=== PATIENT | female | born 1990 | race Hispanic/Latino ===

== ENCOUNTER → 2018-09-27 09:32 | Outpatient (CLI) | payer OTHER, MEDICAID, SELFPAY ==
[2018-09-27 10:09] LABS: Add Manual Diff / Slide Review NO; Basophils Absolute Auto 0 /uL (0-100); Basophils Percent Auto 0.3 % (0-2); Eosinophils Absolute Auto 100 /uL (0-450); Eosinophils Percent Auto 1.3 % (2-4); Hematocrit 38.3 % (36-46); Hemoglobin 12.6 g/dL (12.0-16.0); Lymphocytes Absolute Auto 1800 /uL (1100-4500); Lymphocytes Percent Auto 17.4 % (25-40); Mean Corpuscular Hemoglobin 30.4 PG (26-34); Monocytes Absolute Auto 700 /uL (0-900); Monocytes Percent Auto 6.5 % (3-14); Neutrophils Absolute Auto 7700 /uL (1500-7000); Neutrophils Percent Auto 74.5 % (50-75); Platelet Count 285 X10^3/uL (150-400); Red Blood Cell Count 4.17 X10^6/uL (4.0-5.2); Red Cell Distribution Width 14.2 % (11.6-14.8); White Blood Cell Count 10.3 X10^3/uL (4.5-11.0)
[2018-09-27 10:12] LABS: Appearance Urine UA CLEAR; Bilirubin Urine UA NEGATIVE (NEGATIVE); Color Urine UA YELLOW; Glucose Urine UA NEGATIVE (Negative); Ketones Urine UA NEGATIVE (NEGATIVE); Leukocyte Esterase Urine UA TRACE (NEGATIVE); Nitrite Urine UA NEGATIVE (Negative); Occult Blood Urine UA 1+ (Negative); Protein Urine UA NEGATIVE (Negative); Urobilinogen Urine UA 0.2 E.U./dL (0.2); pH Urine UA 7.5 (4.5-8.0)
[2018-09-27 10:28] LABS: Glucose 78 mg/dL (70-100)
[2018-09-27 10:32] LABS: Hemoglobin A1C% w Est Avg Glu 5.3 % (4.0-6.0)
[2018-09-27 10:34] LABS: RBC Urine 0-1/HPF (0-5/HPF); Squamous Epithelial Cell Urine 1-5 /HPF; WBC Urine 0-1/HPF (0-5/HPF)
[2018-09-27 10:35] LABS: Amorphous Sediment Urine 1+; Bacteria Urine Few (2-10)
[2018-09-27 10:56] LABS: Hepatitis B Surface Antigen NEGATIVE s/c (NEGATIVE); Rubella Antibody IgG 36.8 IU/mL (>15)
[2018-09-27 11:15] LABS: HIV 1 and 2 Antibody NEGATIVE (NEGATIVE); Hep C Virus Ab w/Reflex Quant NEGATIVE s/c (NEGATIVE)
[2018-09-29 13:55] LABS: Varicella IgG Antibody < 135.00 Index (< 135.00)
[2018-09-29 14:06] LABS: RPR Screen Nonreactive (Nonreactive)
== END ==
PROVIDERS: PCP Family Medicine
DX: Z34.81 Encounter for supervision of other normal pregnancy, first trimester (principal)
CPT/HCPCS: 36415; 80055; 81003; 81015; 82947; 83036; 86703; 86787; 86803; 86850; 86900; 86901; 87086

== ENCOUNTER → 2018-11-05 17:01 | Outpatient (CLI) | payer OTHER, MEDICAID, SELFPAY ==
[2018-11-09 09:31] LABS: Sequential Screen 1st Trimeste FINAL RESULT PENDING
== END ==
PROVIDERS: PCP Family Medicine
DX: Z34.81 Encounter for supervision of other normal pregnancy, first trimester (principal)
CPT/HCPCS: 36415; 84163; 84702

== ENCOUNTER 2018-11-20 14:40 | Outpatient (CLI) | payer OTHER, MEDICAID, SELFPAY ==
[2018-11-20 14:42] VITALS: BP 115/70; PULSE 90; RESP 18; TEMP 36.6; O2SAT 100
[2018-11-20 15:42] LABS: Bacteria Urine Few (2-10); Culture Indicated Urine Specimen Cultured; RBC Urine 0-1/HPF (0-5/HPF); Squamous Epithelial Cell Urine 1-5 /HPF (0-5/HPF); WBC Urine 5-10/HPF (0-5/HPF)
--- NOTE | 2018-11-20 16:13 | ED_ITS ---
HPI - Abdominal Pain <Suzanne Nieto PA-C - Last Filed: 11/20/18 21:33> General Chief Complaint: Abdominal Pain Stated Complaint: STOMACH PAIN BACK PAIN HEADACHE 16 WKS Time Seen by Provider: 11/20/18 15:39 Source: patient Mode of arrival: ambulatory Limitations: no limitations History of Present Illness HPI narrative: This healthy female who is 16 weeks comes in due to concern for urinary infection and, states unable to get in with her PCP. She complains of 3 day history of suprapubic discomfort along with urinary frequency and urgency. She denies dusty dysuria, denies hematuria. She states that she has some pain across her low back with the , maybe a little bit worse in the last few days, denies any flank pain. she states her nausea and vomiting are as usual with the , denies any worsening symptoms, denies any fever, chills, sweats. She notes that she has a mild frontal headache today which is not unusual for her, has not taken any Tylenol for this as it is quite mild. She denies any other complaints on systems review. Related Data Home Medications Medication Instructions Recorded Confirmed norethindrone (contraceptive) 1 tab PO DAILY 11/20/18 Previous Rx's Medication Instructions Recorded ondansetron 4 mg disintegrating 4 mg PO Q6H PRN #20 tab 10/16/18 tablet amoxicillin-pot clavulanate 1 tab PO Q12H #10 tab 11/20/18 Allergies Allergy/AdvReac Type Severity Reaction Status Date / Time No Known Drug Allergies Allergy Verified 11/20/18 14:46 Review of Systems <Suzanne Nieto PA-C - Last Filed: 11/20/18 21:33> Review of Systems ROS Unobtainable: All systems reviewed & are unremarkable except as noted in HPI and below PFSH <Suzanne Nieto PA-C - Last Filed: 11/20/18 21:33> Medical History Healthy female adult (Chronic) No pertinent family history (Chronic) Surgical History (Updated 11/20/18 @ 16:12 by Suzanne Nieto PA-C) No pertinent past surgical history (Chronic) Social History Smoking Status: Never smoker Social History Smoking Status: Never smoker Exam <Suzanne Nieto PA-C - Last Filed: 11/20/18 21:33> Narrative Exam Narrative: GENERAL APPEARANCE: Patient sitting comfortably, in no distress. HEENT: PERRL, EOMI, no frontal or maxillary TTP NECK: Supple, no masses LUNGS: Clear to auscultation bilaterally. HEART: Rate and rhythm regular without murmur, normal S1 and S2, no S3 or S4. ABDOMEN: Soft, ND, +BS x 4 quadrants, no CVAT. mild suprapubic tenderness Initial Vital Signs Initial Vital Signs: Vital Signs Temperature 97.9 F 11/20/18 14:42 Pulse Rate 90 11/20/18 14:42 Respiratory Rate 18 11/20/18 14:42 Blood Pressure 115/70 11/20/18 14:42 Pulse Oximetry 100 11/20/18 14:42 <DO Carolina Sin Last Filed: 11/23/18 20:45> Initial Vital Signs Initial Vital Signs: Vital Signs Temperature 97.9 F 11/20/18 14:42 Pulse Rate 90 11/20/18 14:42 Respiratory Rate 18 11/20/18 14:42 Blood Pressure 115/70 11/20/18 14:42 Pulse Oximetry 100 11/20/18 14:42 Course <Suzanne Nieto PA-C - Last Filed: 11/20/18 21:33> Orders Ordered: ED Orders 11/20/18 15:16 Urine Culture Stat Urine Microscopic Stat Vital Signs - 8 hr 11/20/18 14:42 11/20/18 16:18 Temperature 97.9 F Pulse Rate 90 88 Respiratory Rate 18 16 Blood Pressure 115/70 Blood Pressure [Left Arm] 101/72 Pulse Oximetry 100 98 <DO Carolina Sin Last Filed: 11/23/18 20:45> Orders Ordered: ED Orders 11/20/18 15:16 Urine Culture Stat Urine Microscopic Stat Vital Signs - 8 hr 11/20/18 14:42 11/20/18 16:18 Temperature 97.9 F Pulse Rate 90 88 Respiratory Rate 18 16 Blood Pressure 115/70 Blood Pressure [Left Arm] 101/72 Pulse Oximetry 100 98 MDM - Abdominal Pain <SAAD Kumar Last Filed: 11/20/18 21:33> Lab Data Attestation: I reviewed the patient's lab results. Lab Results 11/20/18 Range/Units 15:16 Urine RBC 0-1/hpf (0-5/HPF) Urine WBC 5-10/hpf H (0-5/HPF) Ur Squamous Epith Cells 1-5 /hpf (0-5/HPF) Urine Bacteria Few (2-10) H (None) Ur Culture Indicated? Specimen cultured Point of care testing: Urine Dip Bedside Urine Glucose Negative Bedside Urine Bilirubin - Negative Bedside Urine Ketone - Negative Urine Specific [place] 1.020 Bedside Urine Occult Blood - Negative Bedside Urine pH 6.5 Bedside Urine Protein - Negative Bedside Urine Urobilinogen - Negative Bedside Urine Nitrite - Negative Bedside Urine Leukocytes ++ 125 Esterase <Adrianna Gutierrez DO - Last Filed: 11/23/18 20:45> Lab Data Lab Results 11/20/18 Range/Units 15:16 Urine RBC 0-1/hpf (0-5/HPF) Urine WBC 5-10/hpf H (0-5/HPF) Ur Squamous Epith Cells 1-5 /hpf (0-5/HPF) Urine Bacteria Few (2-10) H (None) Ur Culture Indicated? Specimen cultured Point of care testing: Urine Dip Bedside Urine Glucose Negative Bedside Urine Bilirubin - Negative Bedside Urine Ketone - Negative Urine Specific [place] 1.020 Bedside Urine Occult Blood - Negative Bedside Urine pH 6.5 Bedside Urine Protein - Negative Bedside Urine Urobilinogen - Negative Bedside Urine Nitrite - Negative Bedside Urine Leukocytes ++ 125 Esterase Discharge Plan Departure Patient Disposition: Home Clinical Impression: UTI (urinary tract infection) Qualifiers: Urinary tract infection type: acute cystitis Hematuria presence: without hematuria Qualified Code(s): N30.00 - Acute cystitis without hematuria Discharge Date/Time: 11/20/18 16:20 Interventions: ED Discharge Assessment Last Done: 11/20/18 16:19 Instructions: DI for Urinary Tract Infection (UTI) Activity Restrictions/Additional Instructions: Please return or see your PCP right away if you have any new symptoms such as fever, worsening vomiting or flank/kidney pain while waiting for urine culture results to come back. Today, it appears that you have a simple bladder infection rather than a more serious infection (i.e. in your kidneys). Please start the antibiotic as soon as you pick it up, and take a 2nd dose late tonight at bedtime. Continue this for 5 days. Please also see your PCP if your symptom s are not improving in the next 2-3 days while on antibiotics Prescriptions: New amoxicillin-pot clavulanate 875-125 mg tablet 1 tab PO Q12H Qty: 10 RF: 0 No Action ondansetron 4 mg tablet,disintegrating 4 mg PO Q6H PRN (Reason: nausea and vomiting) Qty: 20 RF: 1 norethindrone (contraceptive) 0.35 mg tablet 1 tab PO DAILY RF: 0 Referrals: Sheldon Taylor MD [Physician] - Sheldon Croft MD [Primary Care Provider] - <Adrianna Gutierrez DO - Last Filed: 11/23/18 20:45> Cosign ED Attending Cosignature Attestation: I was immediately available in the department for consultation. This documentation has been reviewed and I agree with assessment and plan. Supervised by Adrianna Gutierrez DO
[2018-11-20 16:18] VITALS: BP 101/72; PULSE 88; RESP 16; O2SAT 98
[2018-12-11 11:39] LABS: Sequential Screen 2nd Trimeste SCREEN NEGATIVE
== END 2018-12-04 16:23 ==
LOC: ED 16:10 → LAB 12-04 16:26
PROVIDERS: Emergency Medicine; Emergency Provider Internal Medicine; PCP Family Medicine
DX: N30.00 Acute cystitis without hematuria (principal); R51 Headache; Z33.1 Pregnant state, incidental; R35.0 Frequency of micturition; M54.9 Dorsalgia, unspecified; Z34.82 Encounter for supervision of other normal pregnancy, second trimester
CPT/HCPCS: 36415; 81003; 81015; 82105; 82677; 84163; 84702; 86336; 87086; 99282; 99283

== ENCOUNTER → 2019-02-11 12:14 | Outpatient (CLI) | payer OTHER, MEDICAID, SELFPAY ==
[2019-02-11 13:38] LABS: Hematocrit 31.6 % (36-46); Hemoglobin 10.9 g/dL (12.0-16.0)
[2019-02-11 14:00] LABS: GTT (PREG) 1 Hour PP 50gm Dose 102 mg/dL (76-139)
== END ==
PROVIDERS: PCP Family Medicine
DX: Z34.82 Encounter for supervision of other normal pregnancy, second trimester (principal)
CPT/HCPCS: 36415; 82950; 85014; 85018

== ENCOUNTER → 2019-04-02 09:21 | Outpatient (CLI) | payer OTHER, MEDICAID, SELFPAY ==
[2019-04-03 10:05] LABS: Strep Grp B PCR NEG for Grp B Strep
== END ==
PROVIDERS: PCP Family Medicine
DX: Z34.83 Encounter for supervision of other normal pregnancy, third trimester (principal)
CPT/HCPCS: 87653

== ENCOUNTER 2019-04-16 19:43 | Observation (INO) | payer OTHER, MEDICAID, SELFPAY | END 2019-04-16 23:15 | disposition home or self-care (01) | PROVIDERS: PCP Family Medicine | DX: O46.93 Antepartum hemorrhage, unspecified, third trimester (principal); Z3A.37 37 weeks gestation of pregnancy | CPT/HCPCS: 59025; 59050; G0378; G0379 ==

== ENCOUNTER 2019-04-23 11:48 | Outpatient (CLI) | payer OTHER, MEDICAID, SELFPAY | END 2019-04-23 13:25 | disposition home or self-care (01) | LOC: LABOR 13:35 → OB 04-25 16:07 | PROVIDERS: PCP Family Medicine | DX: Z34.03 Encounter for supervision of normal first pregnancy, third trimester (principal); Z3A.38 38 weeks gestation of pregnancy | CPT/HCPCS: 59025; G0378; G0379 ==

== ENCOUNTER 2022-01-02 07:31 | Emergency (ER) | payer OTHER, MEDICAID, SELFPAY ==
[2022-01-02 07:39] VITALS: PULSE 101; O2SAT 100
[2022-01-02 07:40] VITALS: BP 142/67; PULSE 97; O2SAT 100
[2022-01-02 07:47] VITALS: BP 142/67; PULSE 85; RESP 18; TEMP 36.7; O2SAT 100; BMI 19.7
--- NOTE | 2022-01-02 07:54 | ED_ITS ---
HPI - Female Genitourinary General Chief complaint: Urogenital-Female Stated complaint: UTI blood in urine Time Seen by Provider: 01/02/22 07:39 Source: patient Mode of arrival: Ambulatory Limitations: no limitations History of Present Illness HPI Narrative: The patient developed dysuria and urgency yesterday. She also has hematuria, but she was on her menstrual cycle last week. She has suprapubic cramping. She has no other abdominal discomfort. She denies nausea, vomiting or diarrhea. She has no back/flank pain. She denies a history of pyelonephritis. She has no fever or chills. She denies vaginal irritation, although she did have vaginal irritation about 2 weeks ago she treated with an antifungal cream. She was diagnosed with right Hernandez's palsy 6 days ago. She still has right facial this is, she cannot close her right eye. She has been treated for Hernandez's palsy, but was not prescribed artificial tears. She complains of right eye dryness, no visual changes. Related Data Home Medications Medication Instructions Recorded Confirmed norethindrone (contraceptive) 0.35 1 tab PO DAILY 11/20/18 mg tablet Previous Rx's Medication Instructions Recorded ondansetron 4 mg disintegrating 4 mg PO Q6H PRN #20 tab 10/16/18 tablet amoxicillin 875 mg-potassium 1 tab PO Q12H #10 tab 11/20/18 clavulanate 125 mg tablet omeprazole 20 mg capsule,delayed 20 mg PO DAILY #30 cap 02/13/19 release Allergies Allergy/AdvReac Type Severity Reaction Status Date / Time No Known Drug Allergies Allergy Verified 11/20/18 14:46 Review of Systems Constitutional Constitutional: Denies body ache(s), Denies chills, Denies fever(s) and Denies headache(s) Eyes Comments: Right bells palsy. In unable to close her right eye. ENT Ears, Nose, Mouth, and Throat: Denies vertigo and Denies headache(s) Comments: Right facial droop. No dysphagia. Respiratory Respiratory: Denies chest congestion and Denies cough Gastrointestinal Gastrointestinal: Denies abdominal pain, Denies diarrhea, Denies nausea and Denies vomiting Genitourinary Genitourinary: Reports as per HPI Musculoskeletal Musculoskeletal: Denies back pain Integumentary/Breasts Skin/Breast: Denies lesions and Denies rash Neurologic Neurologic: Denies vertigo and Denies headache(s) Patient History 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 No pertinent family history Surgical History No pertinent past surgical history No significant past surgical history tobacco type: cigarettes Exam Initial Vital Signs Initial Vital Signs: Vital Signs Pulse Rate 101 H 01/02/22 07:39 Pulse Oximetry 100 01/02/22 07:39 Const General: cooperative, healthy appearing and comfortable [facility] Head: normocephalic, atraumatic and other (Right facial droop consistent with Hernandez's palsy.) Mouth: oropharynx normal Eyes Pupils: PERRL EOM: EOM intact bilaterally GI Palpation: soft, No mass and No tender Percussion: normal to percussion Auscultation: normal bowel sounds Back/Spine/Pelvis Back: No CVA tenderness Skin General: no rashes or lesions noted Neuro General: patient alert, patient awake, patient oriented x3 and no focal motor deficits Extrem General: normal to inspection, full ROM, no pedal edema and no calf tenderness Psych Mental Status: mental status grossly normal Course Orders Ordered: Discontinued Medications Artificial Tears (Polyvinyl Alcohol Drops) 1 drops EYE-RIGHT PRN PRN PRN Reason: Dry Eye(s) Last Admin: 01/02/22 08:00 Dose: 1 drops Documented by: JAIME Fluconazole (Fluconazole 100 Mg Tablet) 150 mg PO NOW ONE Stop: 01/02/22 08:47 Last Admin: 01/02/22 08:52 Dose: 150 mg Documented by: JAIME Vital Signs Vital signs: Vital Signs - 8 hr 01/02/22 07:39 01/02/22 07:40 01/02/22 07:47 Temperature 98.0 F Pulse Rate 101 H 97 H 85 Respiratory Rate 18 Blood Pressure 142/67 H 142/67 H Pulse Oximetry 100 100 100 01/02/22 08:00 Temperature Pulse Rate 82 Respiratory Rate Blood Pressure 113/72 Pulse Oximetry 99 MDM - Female Genitourinary Medical Records Medical records narrative: The patient's UA reveals hematuria, findings are not consistent with UTI. She is not . She recently had vaginal irritation. Urine culture has been ordered, a single dose of Diflucan has been ordered. She is advised to hydrate well, we will contact her if her urine culture is positive. Lab Data Labs: Lab Results 01/02/22 01/02/22 Range/Units 07:40 07:40 Urine Color Red Urine Appearance Sl cloudy Urine pH 6.5 (4.5-8.0) Ur Specific [place] 1.010 (1.000-1.035) Urine Protein 2+ H (Negative) Urine Glucose (UA) Negative (Negative) g/dL Urine Ketones Negative (NEGATIVE) Urine Occult Blood 3+ H (Negative) Urine Nitrate Negative (Negative) Urine Bilirubin Negative (NEGATIVE) Urine Urobilinogen 0.2 (0.2) E.U./dL Ur Leukocyte Esterase 1+ H (NEGATIVE) Urine RBC >100/hpf H (0-5/HPF) Urine WBC 5-10/hpf H (0-5/HPF) Urine Bacteria None seen (None) Ur Culture Indicated? Specimen cultured Urine Test Negative (Negative) Discharge Plan Departure Patient Disposition: Home Clinical Impression: Dysuria Instructions: DI for Dysuria -- Adult Activity Restrictions/Additional Instructions: Be sure you are drinking plenty of water at all times. The urine sample does not indicate urinary infection. A urine culture has been ordered for further analysis. We will call you if the culture indicate UTI. I gave you a dose of Diflucan, this will cover potential vaginal infections causing your symptoms. If you have not improved in 2 days and when to call us about the urine culture, call . Return as needed. Prescriptions: No Action ondansetron 4 mg tablet,disintegrating 4 mg PO Q6H PRN (Reason: nausea and vomiting) Qty: 20 1RF omeprazole 20 mg capsule,delayed release(DR/EC) 20 mg PO DAILY Qty: 30 3RF norethindrone (contraceptive) 0.35 mg tablet 1 tab PO DAILY 0RF amoxicillin-pot clavulanate 875-125 mg tablet 1 tab PO Q12H Qty: 10 0RF Referrals: Sheldon Croft MD [Primary Care Provider] -
[2022-01-02 08:00] VITALS: BP 113/72; PULSE 82; O2SAT 99
[2022-01-02 08:00] LABS: Appearance Urine UA SL CLOUDY; Bilirubin Urine UA NEGATIVE (NEGATIVE); Color Urine UA RED; Glucose Urine UA NEGATIVE (Negative); Ketones Urine UA NEGATIVE (NEGATIVE); Leukocyte Esterase Urine UA 1+ (NEGATIVE); Nitrite Urine UA NEGATIVE (Negative); Occult Blood Urine UA 3+ (Negative); Protein Urine UA 2+ (Negative); Urobilinogen Urine UA 0.2 E.U./dL (0.2)
[2022-01-02] MEDS: POLYVINYL ALCOHOL DROPS 1 DROPS EYE-RIGHT (08:00)
[2022-01-02 08:01] LABS: Pregnancy Test Urine Negative (Negative)
[2022-01-02 08:02] LABS: Bacteria Urine None Seen; Culture Indicated Urine Specimen Cultured; RBC Urine >100/HPF (0-5/HPF); WBC Urine 5-10/HPF (0-5/HPF); pH Urine UA 6.5 (4.5-8.0)
[2022-01-02 08:30] VITALS: BP 111/70; PULSE 78; O2SAT 99
[2022-01-02] MEDS: FLUCONAZOLE 100 MG TABLET 150 MG PO (08:52)
== END 2022-01-02 09:04 | disposition home or self-care (01) ==
PROVIDERS: Emergency Provider Emergency Medicine; PCP Family Medicine
DX: R30.0 Dysuria (principal)
CPT/HCPCS: 81001; 81025; 87086; 99282

== ENCOUNTER → 2022-08-18 15:21 | Outpatient (CLI) | payer OTHER, MEDICAID, SELFPAY ==
[2022-08-20 15:11] LABS: Candida species Negative (Negative); Gardnerella vaginalis Negative (Negative); Trichomoas vaginalis Negative (Negative)
== END ==
PROVIDERS: PCP Nurse Practitioner Family; Visit Provider Obstetrics & Gynecology
DX: N89.8 Other specified noninflammatory disorders of vagina (principal); K92.1 Melena; R10.84 Generalized abdominal pain
CPT/HCPCS: 87070; 87077; 87205; 87480; 87510; 87660; 99214

== ENCOUNTER 2022-09-27 09:56 | Day surgery (SDC) | payer OTHER, MEDICAID, SELFPAY ==
--- NOTE | 2022-09-27 | PATH_ITS ---
[facility] Accession Number: [id number] No. of containers..01 Tissue . 01 Material submitted: . gastrointestinal site - RANDOM GASTRIC BIOPSIES . 01 Diagnosis: Stomach, Random Biopsies: Antral mucosa with mild chronic inflammation. Negative for Helicobacter organisms by immunohistochemistry. Negative for intestinal metaplasia. Negative for dysplasia and malignancy. [facility] 10/04/2022 1150 Local . 01 Electronically signed: . Sheree Isaac MD, Pathologist NPI- [id number] . 01 Gross description: . RANDOM GASTRIC BIOPSIES: Received in formalin are 2 fragment(s) of tate, soft tissue measuring 0.1 x 0.1 x 0.1 cm to 0.3 x 0.2 x 0.1 cm submitted entirely in 1 cassette(s) /KAIN 09/28/2022 2324 Local . 01 Microscopic: . An immunohistochemical stain was performed to evaluate for Helicobacter organisms and is negative. The control stain showed appropriate reactivity. . . * This test was developed and its performance characteristics determined by [facility]. It has not been cleared or approved by the U.S. Food and Drug Administration. The FDA has determined that such clearance or approval is not necessary. This test is used for clinical purposes. It should not be regarded as investigational or for research. . 01 Pathologist provided ICD-10: R10.84 . 01 CPT . 182353, G58518 Specimen Comment: A courtesy copy of this report has been sent to [phone] Performed at: 01 [facility] [address] [place] [address] [facility] [place], [place], [place] [id number] MD Oskar Angel MD Phone: [phone]
[2022-09-27 10:35] VITALS: BMI 44.3
--- NOTE | 2022-09-27 10:36 | PM.HP.1 ---
History of Present Illness History of Present Illness Date Patient Seen: 09/27/22 Time Patient Seen: 10:36 Chief complaint: EGD/Colonoscopy Narrative: 32-year-old woman with blood per rectum and abdominal pain here for diagnostic esophagoduodenoscopy and colonoscopy. Please refer to the H and P from August 1022. No interval changes in health. Patient History 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 No pertinent family history Surgical History No pertinent past surgical history No significant past surgical history Family & Social History Tobacco & Substance use: Smoking Status Never smoker Meds Home Medications and Allergies Home Medications Medication Instructions Recorded Confirmed Type clobetasol 0.05 % scalp solution 1 applic topical BID 08/18/22 09/27/22 History fluconazole 150 mg tablet 150 mg PO QWEEK 4 weeks #4 tabs 09/01/22 09/27/22 Rx (Diflucan) Allergies Allergy/AdvReac Type Severity Reaction Status Date / Time No Known Drug Allergies Allergy Verified 09/27/22 10:33 Exam Narrative Exam Narrative: General adult woman alert oriented no acute distress Assessment & Plan Assessment and plan (1) Blood in stool: Status: Acute Assessment & Plan narrative: 32-year-old woman with blood per rectum and abdominal pain here for diagnostic esophagoduodenoscopy and colonoscopy. Technical details were discussed. Risks, benefits, alternatives explained. Risks including but not limited to myocardial infarction, aspiration, bleeding, pain, missed lesion, incomplete examination, need for further radiographic studies, intestinal perforation, and need for major abdominal surgery were discussed. All questions were answered to their satisfaction, and they are in agreement with this plan. Time Spent With Patient Critical Care time: I spent a total of [] minutes of critical care time on this patient's care today; this time is exclusive of procedural time.
[2022-09-27 10:41] VITALS: BP 117/82; PULSE 91; RESP 16; TEMP 36.7; O2SAT 100
[2022-09-27] MEDS: LACTATED RINGERS 1,000 ML 200 ML IV (10:42)
[2022-09-27 11:35] VITALS: BP 88/56; PULSE 87; RESP 19; TEMP 36.2; O2SAT 98
[2022-09-27 11:40] VITALS: BP 87/58; PULSE 83; RESP 19; TEMP 36.2; O2SAT 98
--- NOTE | 2022-09-27 11:43 | PM.OP.EC ---
Operative Date/Time/Diagnoses Date of procedure: 09/27/22 Time of procedure: 11:43 Pre-op diagnosis: Rectal bleeding Post-op diagnosis: other (Internal hemorrhoids) Procedure & Clinicians Study performed: Esophagoduodenoscopy and colonoscopy Same procedure as scheduled: Yes Indications: Rectal bleeding Surgeon: Arnold Ramirez Procedure Notes Procedure in detail: The history and physical was performed/updated and the patient is ASA class is 1 . The procedure was discussed in detail with the patient. Potential risks complications including infection, bleeding, missed diagnosis, perforation, need for surgery, and were explained. Their questions were answered and informed consent was obtained. Patient placed in left lateral decubitus position. Time out was performed. Sedation was provided by anesthesia A bite block was placed. the scope was inserted into the mouth and advanced through the esophagus and into the stomach. The pylorus was intubated and the duodenum was normal to the 2nd portion. The scope was retroflexed within the stomach and there was a small hiatal hernia. Very mild gastritis no active hemorrhage, biopsy of the stomach was performed with forceps. The scope was withdrawn into the esophagus the Z line was seen at 38 cm from the incisions. There was no Serrano's esophagitis or masses or strictures. Stomach was desufflated and scope removed. Patient tolerated procedure well. Examination began with a thorough inspection of the perianal area there was no evidence of fissures, fistulae, external hemorrhoids or cutaneous malignancy. The colonoscopy scope was then placed into the anal canal and was advanced to the cecum, which was identified by the ileocecal valve, the appendiceal orifice and the confluence of the taenia. The scope was then slowly withdrawn examining colon thoroughly in all directions, irrigating it of any residual stool. There were no masses polyps within the colon. There are inflamed grade 2 internal hemorrhoids observed on retroflexion within the rectum. The patient tolerated the procedure well. They will be discharged once criteria are met. The prep was of good/excellent quality. The withdrawl time was 7 minutes. Findings: internal hemorrhoids Specimen(s): other (Gastric) Impression: Hemorrhoids Post-procedure Recommendations: High fiber diet Plan for aftercare: Benefiber and preparation H Disposition: same day surgery
[2022-09-27 11:46] VITALS: BP 88/59; PULSE 74; RESP 16; TEMP 36.3; O2SAT 98
[2022-09-27 11:57] VITALS: BP 114/89; PULSE 87; RESP 20; TEMP 36.2; O2SAT 99
== END 2022-09-27 12:18 | disposition home or self-care (01) ==
PROVIDERS: PCP Nurse Practitioner Family; Referring Provider Surgery; Visit Provider Surgery
PROC: 0DJ08ZZ Inspection of Upper Intestinal Tract, Via Natural or Artificial Opening Endoscopic (ICD-10-PCS; CPT 43235; principal; 2022-09-27 11:00)
PROC: 0DJD8ZZ Inspection of Lower Intestinal Tract, Via Natural or Artificial Opening Endoscopic (ICD-10-PCS; CPT 45378; 2022-09-27 11:00)
DX: K62.5 Hemorrhage of anus and rectum (principal); K64.1 Second degree hemorrhoids
CPT/HCPCS: 45378; 43235; J2704

== ENCOUNTER → 2023-01-04 09:03 | Outpatient (CLI) | payer OTHER, MEDICAID, SELFPAY ==
[2023-01-05 11:14] LABS: Candida species Positive (Negative); Gardnerella vaginalis Negative (Negative); Trichomoas vaginalis Negative (Negative)
== END ==
PROVIDERS: PCP Nurse Practitioner Family; Visit Provider Obstetrics & Gynecology
DX: N30.00 Acute cystitis without hematuria (principal); R30.0 Dysuria; N89.8 Other specified noninflammatory disorders of vagina
CPT/HCPCS: 87086; 87480; 87510; 87660

== ENCOUNTER → 2023-01-04 12:07 | Outpatient (CLI) | payer OTHER, MEDICAID, SELFPAY ==
--- NOTE | 2023-01-04 | DI.US.S_ITS ---
ULTRASOUND OF RIGHT BREAST: 01/04/2023 CLINICAL: Palpable right breast lump. Comparison is made to exams dated: 03/20/2017 ultrasound and 01/04/2023 mammogram - [facility]. Real-time ultrasound of the right breast was performed. Flores scale images of the real-time examination were reviewed. There is a 1.1 cm x 1.4 cm x 0.7 cm oval mass in the right breast at 1 o'clock anterior depth. This oval mass is hypoechoic with a well-defined boundary, internal echoes, and posterior acoustic enhancement. This correlates as palpated and with mammography findings. IMPRESSION: SUSPICIOUS OF MALIGNANCY The 1.1 cm x 1.4 cm x 0.7 cm oval mass in the right breast is at a low suspicion for malignancy. An ultrasound guided biopsy is recommended. This exam was interpreted at Station ID: [id number]. SUMMARY: This was discussed with the patient by the radiologist at the time of the exam. Electronically Signed By: Li barrett/:01/04/2023 15:11:25 letter sent: Biopsy Required Ultrasound BI-RADS: 4a Low suspicion for malignancy
--- NOTE | 2023-01-04 | DI.MG.S_ITS ---
BILATERAL DIGITAL DIAGNOSTIC MAMMOGRAM 3D/2D: 01/04/2023 CLINICAL: Baseline exam. Mass of Right breast. No prior exams were available for comparison. Both breasts are extremely dense, which lowers the sensitivity of mammography (category d />75% glandular tissue). There is a focal asymmetry in the right breast at 2 o'clock in the retroareolar region. This is seen in additional views. This correlates as palpated. No other significant masses, calcifications, or other findings are seen in either breast. IMPRESSION: INCOMPLETE: NEEDS ADDITIONAL IMAGING EVALUATION The focal asymmetry in the right breast is indeterminate. A targeted ultrasound of the right breast is recommended and will be performed immediately following this exam. Based on the Tyrer Cuzick model (a risk assessment model) the patient's lifetime risk is 10.7% and her 10 year risk is 0.5%. According to the ACR, ACS, and NCCN guidelines, an annual breast MRI exam along with mammogram is recommended if the patient's lifetime risk is 20% or greater. This exam was interpreted at Station ID: [id number]. NOTE: For mammograms, a report in lay terms will be sent to the patient. Approximately 15% of breast malignancies will not be visualized mammographically. In the management of a palpable breast mass, a negative mammogram must not discourage biopsy of a clinically suspicious lesion. Electronically Signed By: Li Scott M.D. lk/:01/04/2023 12:38:29 ACR BI-RADS Category 0: Incomplete [id number]
== END ==
PROVIDERS: PCP Nurse Practitioner Family; Referring Provider Nurse Practitioner Family; Visit Provider Nurse Practitioner Family
DX: N64.89 Other specified disorders of breast (principal); N30.00 Acute cystitis without hematuria; R30.0 Dysuria; N89.8 Other specified noninflammatory disorders of vagina; N63.11 Unspecified lump in the right breast, upper outer quadrant
CPT/HCPCS: 76642; 77066; 87077; 87086; 87186; 87480; 87510; 87660; G0279

== ENCOUNTER → 2023-01-16 13:58 | Outpatient (CLI) | payer OTHER, MEDICAID, SELFPAY ==
--- NOTE | 2023-01-16 | DI.MG.S_ITS ---
UNILATERAL RIGHT DIGITAL DIAGNOSTIC MAMMOGRAM 3D/2D POST-PROCEDURE IMAGING FOR MARKER PLACEMENT: 01/16/2023 CLINICAL: Unspecified lump in the Right breast- post clip. Comparison is made to exams dated: 01/04/2023 ultrasound, 01/04/2023 mammogram, and 03/20/2017 ultrasound - [facility]. The right breast is extremely dense, which lowers the sensitivity of mammography (category d />75% glandular tissue). There is a marker clip in the appropriate position in the right breast at 1 o'clock anterior depth. This marker clip placement is at the biopsy site. This correlates with ultrasound findings and the biopsy. IMPRESSION: POST PROCEDURE MAMMOGRAM FOR MARKER PLACEMENT There was a successful marker clip placement in the right breast anterior depth. This exam was interpreted at Station ID: [id number]. Electronically Signed By: Graham Bhatia M.D. aty/:01/16/2023 21:29:59 ACR BI-RADS Category Post-procedure mammogram for marker placement
--- NOTE | 2023-01-16 | PATH_ITS ---
[facility] Accession Number: [id number] No. of containers..01 Tissue . 01 Material submitted: . breast - RIGHT BREAST MASS 1:00 1 CM FN . 01 Diagnosis: Right Breast Mass, 1 o'clock, 1 cm From The Nipple, Needle Core Biopsy: Predominantly blood with scant breast parenchyma showing a fibroepithelial lesion, favor fibroadenoma. See comment. CHERYL 01/19/2023 1403 Local . 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 This may be inherent to the lesion or occasionally may present as a mass. As part of routine it quality assurance analyst, this case was also reviewed by Dr. Mayi Watkins, who agrees with the interpretation. . 01 Electronically signed: . Charu Riddle MD, Pathologist NPI- [id number] . 01 Gross description: . The specimen is received in formalin labeled with the patient's name, , and BX breast consists of multiple tate soft tissue fragments admixed with hemorrhagic material aggregating to 3.5 x 2.6 x 0.4 cm. The specimen is filtered into biopsy bags, is inked blue, and submitted entirely in cassettes A1-A2. . The specimen was removed on 01/16/2023 at 1540. Time in formalin not provided. Cold ischemic time cannot be calculated. Total fixation time is approximately 28 hours. ([id number]) /MRV 01/17/2023 1417 Local . 01 Pathologist provided ICD-10: N63.10, D24.1 . 01 CPT . 596318 Specimen Comment: A courtesy copy of this report has been sent to [facility]ology Performed at: 01 [facility] [address] [place] [id number] MD Oskar Angel MD Phone: [phone]
--- NOTE | 2023-01-16 | DI.US.S_ITS ---
ULTRASOUND GUIDED BIOPSY RIGHT BREAST USING VACUUM DEVICE WITH MARKING DEVICE INSERTED: 01/16/2023 CLINICAL: Right breast mass. PATIENT CONSENT: Risks (minor bleeding, infection, vasovagal reaction and repeat procedure), benefits and alternatives were explained to the patient and written informed consent was obtained. Correlation is made to exams dated: 01/04/2023 ultrasound and 01/04/2023 mammogram [facility]. An ultrasound guided biopsy using real-time ultrasound was performed for the 1.3 cm x 0.8 cm x 0.9 cm oval mass located in the right breast at 1 o'clock anterior depth. This was described on the previous mammography and ultrasound reports. The skin was prepped in the usual manner. Local anesthetic was administered to the access site. A skin abilio was made in the breast. The abnormality was approached from the lateral aspect. A 13 gauge biopsy needle was placed adjacent to the abnormality under ultrasound guidance. Once the needle was documented to be in the correct location, four specimens were obtained using the Mammotome biopsy system. A clip was inserted into the biopsy cavity. A sterile dressing was applied to the access site. Post procedure imaging demonstrates the location device at the targeted area. The specimens were sent to the laboratory for pathological analysis. IMPRESSION: ULTRASOUND GUIDED BIOPSY BENIGN Ultrasound guided biopsy of the 1.3 cm x 0.8 cm x 0.9 cm mass in the right breast at 1 o'clock anterior depth was successful. 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 Pathology results are concordant with imaging findings. A follow-up right ultrasound in 6 months is recommended to demonstrate stability. Results and recommendations will be communicated to the ordering provider's office. This exam was interpreted at Station ID: [id number]. Graham potts,yang/:01/23/2023 09:59:55
== END ==
PROVIDERS: PCP Nurse Practitioner Family; Referring Provider Nurse Practitioner Family; Visit Provider Nurse Practitioner Family
DX: N63.12 Unspecified lump in the right breast, upper inner quadrant (principal)
CPT/HCPCS: 19083; 77065

== ENCOUNTER 2023-01-16 16:52 | Emergency (ER) | payer OTHER, MEDICAID, SELFPAY ==
[2023-01-16 17:04] VITALS: BP 137/90; PULSE 93; RESP 16; TEMP 36.9; O2SAT 100; BMI 20.1
--- NOTE | 2023-01-16 20:37 | ED.WOUNDLAC ---
HPI - Wound/Laceration General Chief Complaint: Wound/Laceration Stated Complaint: BLEEDING RT CHEST/JUST HAD BIOPSY Time Seen by Provider: 01/16/23 18:13 Source: patient Mode of arrival: Ambulatory History of Present Illness HPI narrative: Patient is a 32-year-old female who earlier today underwent a needle biopsy of the right breast. The procedure went well. She was waiting in her car to get onto the very in order to return home when she had a sudden increase in bleeding. She turned around and came to the emergency department. This that time the bleeding has stopped. Related Data Home Medications Medication Instructions Recorded Confirmed clobetasol 0.05 % scalp solution 1 applic topical BID 08/18/22 09/27/22 Previous Rx's Medication Instructions Recorded phenylephrine 0.25 %-mineral oil 1 applic HI QAM AND QHS #57 grams 09/27/22 14 %-petrolatm 74.9 % rectal ointment (Preparation H) wheat dextrin 3 gram/4 gram oral 3 g PO BID #500 grams 09/27/22 powder (Benefiber Sugar Free (dextrin)) fluconazole 150 mg tablet 150 mg PO ONCE 1 day #1 tab 01/05/23 (Diflucan) nitrofurantoin 100 mg PO BID #10 caps 01/06/23 monohydrate/macrocrystals 100 mg capsule (Macrobid) Allergies Allergy/AdvReac Type Severity Reaction Status Date / Time No Known Drug Allergies Allergy Verified 01/16/23 17:04 Review of Systems Constitutional Constitutional: Reports system reviewed and no additional complaints, except as documented Integumentary/Breasts Skin/Breast: Reports system reviewed and no additional complaints, except as documented Patient History 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 No pertinent family history Surgical History No pertinent past surgical history No significant past surgical history Social History household members: spouse Smoking Status: Never smoker alcohol intake: never Smoking Status: Never smoker tobacco type: cigarettes Substance Use Type: does not use Exam Initial Vital Signs Initial Vital Signs: Vital Signs Temperature 98.4 F 01/16/23 17:04 Pulse Rate 93 H 01/16/23 17:04 Respiratory Rate 16 01/16/23 17:04 Blood Pressure 137/90 01/16/23 17:04 Pulse Oximetry 100 01/16/23 17:04 Oxygen Delivery Method Room Air 01/16/23 17:04 Const General: cooperative and healthy appearing Chest Other: Steri-Strips in place in the right upper outer quadrant of the breast. No active bleeding. No surrounding erythema. Skin Other: No active bleeding Course Vital Signs Vital signs: Vital Signs - 8 hr 01/16/23 20:47 Pulse Rate 86 Respiratory Rate 18 Blood Pressure 125/77 Pulse Oximetry 99 Oxygen Delivery Method Room Air MDM - Wound/Laceration MDM Narrative Medical decision making narrative: No active bleeding currently. The Steri-Strips are in place. No surrounding erythema. No further workup required in the emergency department. She was instructed to continue to follow the postprocedure instructions given to her by the operative provider. Discharge Plan Departure Patient Disposition: Home Clinical Impression: Postoperative hemorrhage Activity Restrictions/Additional Instructions: It appears that the bleeding has stopped. I recommend that you continue to follow all of the postprocedure instructions given to you by the operative provider. Return to the emergency department for new or worsening symptoms. Prescriptions: No Action fluconazole [Diflucan] 150 mg tablet 150 mg PO ONCE 1 Days Qty: 1 1RF Rx Instructions: Repeat in 1 week if needed nitrofurantoin monohyd/m-cryst [Macrobid] 100 mg capsule 100 mg PO BID Qty: 10 0RF Rx Instructions: must administer with a meal/food clobetasol 0.05 % solution 1 applic topical BID Preparation H 0.25-14-74.9 % ointment 1 applic HI QAM AND QHS Qty: 57 0RF Benefiber Sugar Free (dextrin) 3 gram/4 gram powder 3 g PO BID Qty: 500 0RF Rx Instructions: mix into at least 4 oz water or juice before administering Referrals: Pamela Hill ARNP [Primary Care Provider] - Stand Alone Forms: Patient Portal/API
[2023-01-16 20:47] VITALS: BP 125/77; PULSE 86; RESP 18; O2SAT 99
== END 2023-01-16 20:48 | disposition home or self-care (01) ==
PROVIDERS: Emergency Provider Emergency Medicine; PCP Nurse Practitioner Family
DX: L76.22 Postprocedural hemorrhage of skin and subcutaneous tissue following other procedure (principal); N63.12 Unspecified lump in the right breast, upper inner quadrant
CPT/HCPCS: 19083; 77065; 99281